=== PATIENT | female | born 1960 | race Caucasian/White ===

== ENCOUNTER 2017-10-13 14:24 | Emergency (ER) | payer OTHER ==
[~2017-10-13] VITALS: Ht 172.7 cm; Wt 72.3 kg
[~2017-10-13 14:24] MED LIST: ATORVASTATIN CA40 MG PO; BAYER CHEWABLE81 MG PO; CELEBREX 200 M200 M1; CIPROFLOXACIN500 M1 PO; CLONAZEPAM 0.50.5 M1 PO; DESYREL50 MG; ESTRADIOL 1 MG T1 M1; FLEXERIL PO; HYDROCODONE-APA10 ML; HYDROXYZINE HCL25 M1 PO; IBUPROFEN 800800 M1 PO; LEXAPRO 10 MG T10 MG; NORCO 5-325 TA1 EACH PO; ONDANSETRON HCL4 M2 PO; PAIN & FEVER325 MG; PERCOCET 5-3251 EACH PO; PRILOSEC 20 MG20 MG; PROMETHAZINE-C120 ML PO; PROTONIX40 M1 PO; TRAZODONE HCL50 MG PO; TRIAMCINOLONE A80 G2 TOP; UNICOMPLEX M TA1 TA1 PO; VITAMIN B-12500 MCG PO; VYTORIN 10-401 EACH; WELLBUTRIN SR150 MG PO; XANAX 0.5 MG0.5 M1 PO
[2017-10-13] MEDS ORDERED: MIDODRINE HCL 55 M1 PO (14:39)
[2017-10-13] MEDS ORDERED: PRILOSEC 20 MG20 MG PO (14:39)
[2017-10-13 15:26] LABS: ABSOLUTE LYMPHOCYTES 2.7 thou/uL (0.8-5.3); ABSOLUTE MONOCYTES 0.8 thou/uL (0.0-1.2); ABSOLUTE NEUTROPHILS 6.7 thou/uL (1.6-8.1); BASOPHILS 0.2 %; HEMATOCRIT 43.6 % (37.0-47.0); HEMOGLOBIN 14.6 gm/dL (12.0-15.0); LYMPHOCYTES 26.2 %; MCH 29.4 pg (26.0-34.0); MCHC 33.6 g/dL (28.0-37.0); MCV 87.6 fL (80.0-100.0); MPV 7.9 fl. (7.2-11.1); NUCLEATED RBCS 0 /100WBC; PLATELET COUNT* 360 thou/uL (150-400); POLYS 65.6 %; RBC 4.98 mil/uL (4.20-5.00); RDW-CV 13.4 % (10.5-14.5); WBC 10.2 thou/uL (4.0-11.0)
[2017-10-13 15:28] LABS: URINE BLOOD NEGATIVE (Negative); URINE CLARITY CLOUDY; URINE COLOR YELLOW; URINE GLUCOSE-RANDOM TRACE (Negative); URINE KETONES TRACE (Negative); URINE LEUKOCYTES-REFLEX 1+ (Negative); URINE PROTEIN 2+ (Negative); URINE SPECIFIC GRAVITY 1.025 (1.005-1.030)
[2017-10-13 15:31] LABS: ICTOTEST (BILI CONFIRMATORY) Negative (Negative); URINE BILIRUBIN 1+ (Negative); URINE NITRITE-REFLEX POSITIVE (Negative)
[2017-10-13 15:34] LABS: ANION GAP 9 mmol/L (7-16); BUN 15 mg/dL (7-18); CALCIUM 9.2 mg/dL (8.5-10.1); CHLORIDE 104 mmol/L (98-107); CO2 26 mmol/L (21-32); GLUCOSE 126 mg/dL (70-99); POTASSIUM 3.7 mmol/L (3.5-5.1); SODIUM 139 mmol/L (136-145)
[2017-10-13 15:37] LABS: BACTERIA-REFLEX >30 Many /HPF (None Seen); CASTS None Seen /LPF (None Seen); CRYSTALS None Seen /LPF (None Seen); SQUAMOUS NONE SEEN /LPF (0-3); URINE RBC 3-10 Few /HPF (0-2); URINE WBC-REFLEX >25 Many /HPF (0-5)
[2017-10-13 15:41] LABS: ALBUMIN 3.7 g/dL (3.4-5.0); ALKALINE PHOSPHATASE 91 U/L (46-116); SGOT 17 U/L (15-37); SGPT 25 U/L (30-65); TOTAL BILIRUBIN 0.5 mg/dL (<0.1-1.0); TOTAL PROTEIN 7.4 g/dL (6.4-8.2); TROPONIN-I LEVEL <0.06 ng/mL (<0.06)
[2017-10-13] MEDS ORDERED: CLOTRIMAZOLE 1%15 G1 TOP (15:55)
[2017-10-13] MEDS ORDERED: BACTRIM DS TAB1 EACH PO (15:55)
[2017-10-13 16:09] VITALS: BP 138/76
--- NOTE | 2017-10-14 10:31 | EKG ---
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1960 Requested By: Monica Eckert Order Number: [id number] MD: Derek Wild Measurements Intervals [place] Rate: 66 P: 6 ID: 126 QRS: -39 QRSD: 106 T: 25 QT: 405 QTc: 425 Interpretive Statements Sinus rhythm Left axis deviation Baseline wander in lead(s) V6 Compared to ECG 12/02/2015 19:44:48 Left-axis deviation now present T-wave abnormality no longer present Electronically Signed On 10-14-2017 10:31:43 CDT by Derek Wild [email or web address] <ELECTRONICALLY SIGNED> By: Zaki Wild MD, [facility] 10/14/17 1031 1539 1539 Zaki Wild MD, [facility] /EPI
== END 2017-10-13 16:10 | disposition home or self-care (01) ==
LOC: M.ERS 14:24
PROVIDERS: Nurse Practitioner Family
DX: N39.0 Urinary tract infection, site not specified (principal); L30.9 Dermatitis, unspecified; E78.00 Pure hypercholesterolemia, unspecified; F41.9 Anxiety disorder, unspecified; K21.9 Gastro-esophageal reflux disease without esophagitis; E11.9 Type 2 diabetes mellitus without complications; Z87.442 Personal history of urinary calculi; Z91.040 Latex allergy status; Z88.5 Allergy status to narcotic agent; Z88.8 Allergy status to other drugs, medicaments and biological substances; Z90.710 Acquired absence of both cervix and uterus; Z90.49 Acquired absence of other specified parts of digestive tract

== ENCOUNTER 2017-10-15 18:05 | Emergency (ER) | payer OTHER ==
[~2017-10-15] VITALS: Ht 172.7 cm; Wt 72.1 kg
[~2017-10-15 18:05] MED LIST changes: +BACTRIM DS TAB1 EACH PO; +CLOTRIMAZOLE 1%15 G1 TOP; +MIDODRINE HCL 55 M1 PO; +PRILOSEC 20 MG20 MG PO
[2017-10-15 18:18] LABS: URINE BILIRUBIN NEGATIVE (Negative); URINE BLOOD NEGATIVE (Negative); URINE CLARITY CLEAR; URINE COLOR YELLOW; URINE GLUCOSE-RANDOM NEGATIVE (Negative); URINE KETONES NEGATIVE (Negative); URINE LEUKOCYTES-REFLEX NEGATIVE (Negative); URINE NITRITE-REFLEX NEGATIVE (Negative); URINE PROTEIN NEGATIVE (Negative); URINE UROBILINOGEN 0.2 E.U./dl (0.2-1.0)
[2017-10-15 18:39] LABS: ABSOLUTE EOSINOPHILS 0.1 thou/uL (0.0-0.7); ABSOLUTE LYMPHOCYTES 3.7 thou/uL (0.8-5.3); ABSOLUTE MONOCYTES 0.6 thou/uL (0.0-1.2); ABSOLUTE NEUTROPHILS 6.5 thou/uL (1.6-8.1); BASOPHILS 0.3 %; EOSINOPHILS 0.6 %; HEMOGLOBIN 14.1 gm/dL (12.0-15.0); LYMPHOCYTES 33.9 %; MCH 29.4 pg (26.0-34.0); MCHC 33.5 g/dL (28.0-37.0); MCV 87.7 fL (80.0-100.0); MONOCYTES 5.6 %; MPV 7.8 fl. (7.2-11.1); NUCLEATED RBCS 0 /100WBC; PLATELET COUNT* 346 thou/uL (150-400); POLYS 59.6 %; RBC 4.79 mil/uL (4.20-5.00); RDW-CV 13.5 % (10.5-14.5); WBC 10.9 thou/uL (4.0-11.0)
[2017-10-15 18:50] LABS: CALCIUM 8.5 mg/dL (8.5-10.1); CREATININE 1.1 mg/dL (0.6-1.3); POTASSIUM 4.1 mmol/L (3.5-5.1)
[2017-10-15 18:54] LABS: ALBUMIN 3.5 g/dL (3.4-5.0); TOTAL BILIRUBIN 0.3 mg/dL (<0.1-1.0); TOTAL PROTEIN 6.9 g/dL (6.4-8.2)
[2017-10-15 19:48] VITALS: BP 142/79
== END 2017-10-15 19:49 | disposition home or self-care (01) ==
LOC: M.ERS 18:05
PROVIDERS: Nurse Practitioner Family
DX: N23 Unspecified renal colic (principal); R11.2 Nausea with vomiting, unspecified; E78.00 Pure hypercholesterolemia, unspecified; F41.9 Anxiety disorder, unspecified; K21.9 Gastro-esophageal reflux disease without esophagitis; E11.9 Type 2 diabetes mellitus without complications; Z91.040 Latex allergy status; Z88.6 Allergy status to analgesic agent; Z88.8 Allergy status to other drugs, medicaments and biological substances; Z90.710 Acquired absence of both cervix and uterus; Z90.49 Acquired absence of other specified parts of digestive tract

== ENCOUNTER 2020-03-11 20:40 | Observation (INO) | payer OTHER ==
[~2020-03-11] VITALS: Ht 170.2 cm; Wt 85.3 kg
--- NOTE | ~2020-03-11 | EMS ---
[facility] [place] [address] EMS Patient Care Report Name: ARY VERDIN Room: [address] Modesto Castaneda#: [id number] Admission: 03/11/20 Attend Phys: Nata Kumar Discharge: 03/12/20 Date of : 56 Report #: [id number] THIS REPORT FOR: //name// Report Transmitted: 03/15/2020 10:21 EMS Care Summary GONZALO HOOD Incident [id number] @ 03/11/2020 20:01 Incident Location [address] [place] [address] Patient ARY VERDIN Female, 60 Years 1960 Patient Address [address] [place] [address] Patient History Personal history of pulmonary embolism,Hypotension, Patient Allergies , Patient Medications Aspirin, Trazodone, Clonazepam, Lipitor, Chief Complaint Chest Pain Disposition Transported No Lights/[place] Dispatch Reason Chest Pain (Non-Traumatic) Transported To [facility] Narrative RESPONDED TO 911 CALL FOR CHEST PAIN. ARRIVED ON SCENE WITH IFD. MET WITH IFD AND 60 YEAR OLD FEMALE PATIENT ARY VERDIN WHO WAS SITTING UPRIGHT IN HER ARMCHAIR PINK AND DRY WITH A NON REBREATHER MASK AT 15L/MIN O2. IFD REPORTED ARY HAD BEEN HAVING CHEST PAIN SINCE , HAD COMPLAINED OF [place] [address] EMS Patient Care Report Name: ARY VERDIN Room: [address] Leonel#: [id number] Admission: 03/11/20 Attend Phys: Nata Kumar Discharge: 03/12/20 Date of : 56 Report #: [id number] SHORTNESS OF AIR WHEN SHE LAID DOWN. IFD REPORTED HISTORY OF PULMONARY EMBOLISM. ARY WAS A&OX4, GCS 15, PINK AND DRY, RR 20, CLEAR BILATERAL LUNG SOUNDS. GATHERED 12 LEAD. GATHERED OPQRST/SAMPLE, DEMOGRAPHICS. ARY RE[facility] SAT ARY ON COT, SECURED TO COT, DISCONTINUED O2. WHEELED ARY TO AMBULANCE. IN AMBULANCE GATHERED VITAL SIGNS, GAINED IV ACCESS 18 GAUGE IN LEFT AC, BLOOD GLUCOSE. DANIE ORDERED NON EMERGENT TRANSPORT TO [facility]. GATHERED FURTHER OPQRST/SAMPLE. BYRON STATED THE PAIN HAD GOTTEN WORSE TODAY, COULDN'T BE MORE SPECIFIC. ARY PREFERRED TO DISCUSS PERSONAL LIFE OVER DISCUSSING MEDICAL HISTORY. CALLED RADIO REPORT TO [facility]. MONITORED ARY FOR DURATION OF TRANSPORT. ARRIVED. WHEELED ARY TO RN STATION, DIRECTED TO ROOM 11. WHEELED ARY TO 11, ASSISTED ARY TO HOSPITAL BED. GAVE REPORT, TRANSFERRED CARE. Initial Vitals @20:15Pain: 08/19, @20:29Pain: 6/10, @20:16 @CHEMICAL INSTRUMENTATION OFFICER: 20:15P: 90,R: 20,BP: 190/130, @20:28P: 70,R: 20,BP: 170/90, @CHEMICAL INSTRUMENTATION OFFICER: 20:15GCS: 15, @20:28GCS: 15, @20:15 @20:29Glucose: 123, Assessments @20:15MENTAL:SKIN:HEENT:LUNG SOUNDS:ABDOMEN:PELVIS//GI:EXTREMITIES:PULSE:NEURO: Impression Chest Pain, Other (Non-Cardiac) Procedures @20:29 cc () Site: Antecubital-LeftResponse: UnchangedSucceeded@20:1612-Lead ECGResponse: UnchangedSucceeded Timeline 20:01,Call Received 20:01,Dispatch Notified 20:01,Psap Call 20:01,Dispatched 20:01,En Route 20:14,On Scene 20:15,At Patient 20:15,BP: / M,PULSE: ,RR: R,SPO2: Ox,ETCO2: ,BG: ,PAIN: 6,GCS: , 20:15,BP: 190/130 M,PULSE: 90,RR: 20 R,SPO2: Ox,ETCO2: ,BG: ,PAIN: ,GCS: , [facility] [address] [place] [address] EMS Patient Care Report Name: ARY VERDIN Room: [address] M.R.#: [id number] Admission: 03/11/20 Attend Phys: Nata Kumar Discharge: 03/12/20 Date of : 56 Report #: [id number] 20:15,BP: / M,PULSE: ,RR: R,SPO2: Ox,ETCO2: ,BG: ,PAIN: ,GCS: 15, 20:15,BP: / M,PULSE: ,RR: R,SPO2: Ox,ETCO2: ,BG: ,PAIN: ,GCS: , 20:16,12-Lead ECG,Response: UnchangedSucceeded, 20:16,BP: / M,PULSE: ,RR: R,SPO2: Ox,ETCO2: ,BG: ,PAIN: ,GCS: , 20:28,BP: 170/90 M,PULSE: 70,RR: 20 R,SPO2: Ox,ETCO2: ,BG: ,PAIN: ,GCS: , 20:28,BP: / M,PULSE: ,RR: R,SPO2: Ox,ETCO2: ,BG: ,PAIN: ,GCS: 15, 20:29,Depart Scene 20:29, cc Site: Antecubital-Left,Response: UnchangedSucceeded, 20:29,BP: / M,PULSE: ,RR: R,SPO2: Ox,ETCO2: ,BG: ,PAIN: 6,GCS: , 20:29,BP: / M,PULSE: ,RR: R,SPO2: Ox,ETCO2: ,B,PAIN: ,GCS: , 20:37,At Destination 20:53,Call Closed Disclaimer v1.1 Copyright 2020 [employer] This EMS Care Summary contains data elements from the applicable legal record (which may be displayed differently). It is designed to provide pertinent information for the following purposes: continuity of care, clinical quality, and state data reporting. The complete legal record is available to ED staff and administrators of the receiving hospital in [employer] Patient Tracker. All data is provided "as is."
[2020-03-11 20:41] VITALS: BP 145/67
[2020-03-11] MEDS ORDERED: PROTONIX40 M2 PO (20:49)
[2020-03-11] MEDS ORDERED: PYRIDOSTIGMINE60 M1 PO (20:50)
[2020-03-11] MEDS ORDERED: YUVAFEM10 MCG VAG (20:50)
[2020-03-11] MEDS ORDERED: PEPCID20 MG PO (20:50)
[2020-03-11] MEDS ORDERED: MAGIC MOUTHWASH SWISH&SPIT (20:51)
[2020-03-11] MEDS ORDERED: FLONASE 0.05%50 MCG NASAL (20:51)
[2020-03-11] MEDS ORDERED: XANAX 0.5 MG0.5 MG PO (20:51)
[2020-03-11 21:09] LABS: ABSOLUTE BASOPHILS 0.1 thou/uL (0.0-0.2); ABSOLUTE EOSINOPHILS 0.5 thou/uL (0.0-0.7); ABSOLUTE LYMPHOCYTES 4.9 thou/uL (0.8-5.3); ABSOLUTE MONOCYTES 0.7 thou/uL (0.0-1.2); ABSOLUTE NEUTROPHILS 3.6 thou/uL (1.6-8.1); BASOPHILS 1.1 %; HEMATOCRIT 41.1 % (37.0-47.0); HEMOGLOBIN 13.8 gm/dL (12.0-15.0); LYMPHOCYTES 50.1 %; MCH 29.4 pg (26.0-34.0); MCHC 33.7 g/dL (28.0-37.0); MCV 87.3 fL (80.0-100.0); MONOCYTES 6.8 %; MPV 7.8 fl. (7.2-11.1); NUCLEATED RBCS 0 /100WBC; PLATELET COUNT* 309 thou/uL (150-400); RBC 4.71 mil/uL (4.20-5.00); RDW-CV 14.1 % (10.5-14.5); WBC 9.8 thou/uL (4.0-11.0)
[2020-03-11 21:19] LABS: CALCIUM 9.1 mg/dL (8.5-10.1); CREATININE 0.9 mg/dL (0.6-1.3); POTASSIUM 3.8 mmol/L (3.5-5.1)
[2020-03-11 21:21] LABS: PROTIME 9.7 Seconds (9.20-11.50)
[2020-03-11 21:24] LABS: URINE BILIRUBIN NEGATIVE (Negative); URINE BLOOD NEGATIVE (Negative); URINE CLARITY CLEAR; URINE COLOR YELLOW; URINE GLUCOSE-RANDOM NEGATIVE (Negative); URINE KETONES NEGATIVE (Negative); URINE LEUKOCYTES-REFLEX NEGATIVE (Negative); URINE NITRITE-REFLEX NEGATIVE (Negative); URINE PROTEIN NEGATIVE (Negative); URINE SPECIFIC GRAVITY <= 1.005 (1.005-1.030); URINE UROBILINOGEN 0.2 E.U./dl (0.2-1.0)
[2020-03-11 21:26] LABS: INR < 0.9
[2020-03-11 21:29] LABS: ALBUMIN 3.4 g/dL (3.4-5.0); MAGNESIUM 2.2 mg/dL (1.8-2.4); TOTAL BILIRUBIN 0.2 mg/dL (<0.1-1.0); TOTAL PROTEIN 6.8 g/dL (6.4-8.2)
[2020-03-11 21:38] LABS: AMP/METHAMP Negative (Negative); BARBITURATES Negative (Negative); BENZODIAZEPINES Negative (Negative); COCAINE Negative (Negative); METHADONE Negative (Negative); OPIATES Negative (Negative); PCP Negative (Negative); THC Negative (Negative)
[2020-03-12 00:30] VITALS: BP 118/60
[2020-03-12 01:05] VITALS: BP 141/71
[2020-03-12 04:15] VITALS: BP 102/52
[2020-03-12 08:00] VITALS: BP 128/68
[2020-03-12 12:48] VITALS: BP 139/72
[2020-03-12 13:12] LABS: ABSOLUTE BASOPHILS 0.1 thou/uL (0.0-0.2); ABSOLUTE EOSINOPHILS 0.3 thou/uL (0.0-0.7); ABSOLUTE LYMPHOCYTES 2.7 thou/uL (0.8-5.3); ABSOLUTE MONOCYTES 0.5 thou/uL (0.0-1.2); BASOPHILS 0.9 %; EOSINOPHILS 5.2 %; HEMATOCRIT 39.9 % (37.0-47.0); HEMOGLOBIN 13.4 gm/dL (12.0-15.0); LYMPHOCYTES 41.8 %; MCH 29.3 pg (26.0-34.0); MCHC 33.5 g/dL (28.0-37.0); MCV 87.4 fL (80.0-100.0); MONOCYTES 7.2 %; MPV 8.1 fl. (7.2-11.1); NUCLEATED RBCS 0 /100WBC; PLATELET COUNT* 300 thou/uL (150-400); POLYS 44.9 %; RBC 4.56 mil/uL (4.20-5.00); RDW-CV 14.1 % (10.5-14.5); WBC 6.6 thou/uL (4.0-11.0)
[2020-03-12 13:25] LABS: ANION GAP 6 mmol/L (7-16); BUN 11 mg/dL (7-18); CALCIUM 8.7 mg/dL (8.5-10.1); CHLORIDE 108 mmol/L (98-107); CO2 28 mmol/L (21-32); CREATININE 0.8 mg/dL (0.6-1.3); GLUCOSE 94 mg/dL (70-99); POTASSIUM 4.1 mmol/L (3.5-5.1); SODIUM 142 mmol/L (136-145)
[2020-03-12 13:50] VITALS: BP 139/72
[2020-03-12 13:57] LABS: TROPONIN-I LEVEL <0.06 ng/mL (<0.06)
[2020-03-12] MEDS ORDERED: NADOLOL 20 MG T20 M1 PO (15:06)
--- NOTE | 2020-03-13 09:36 | EKG ---
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
--- NOTE | 2020-03-15 08:42 | CON ---
[address] [address] CONSULTATION Name: ARY VERDIN Room: [address] Modesto Castaneda#: [id number] Admission: 03/11/20 Attend Phys: Nata Kumar Discharge: 03/12/20 Date of : 56 Report #: [id number] THIS REPORT FOR: cc: Megan Alvarez Tara DO ~ Liston, Michael J. MD [facility] CARDIOLOGY CONSULT INDICATION FOR CONSULTATION: Chest pain and near syncope. HISTORY OF PRESENT ILLNESS: The patient is a 60-year-old white female who was admitted to the hospital yesterday with complaints of chest discomfort, heaviness, dizziness, nausea and generalized ill feeling. She had low-grade fever, but denied any high-grade fevers. She had nausea without vomiting. She reports a history of fundoplication remotely and therefore only has dry heaves. She reports some combination of constipation and diarrhea as well. Her discomfort is generalized more than focal and does not radiate. Her primary other significant issue appears to be frequent episodes of dizziness and near syncope as well as syncopal episodes. She has apparent autonomic dysfunction with positional orthostatic tachycardia and possible orthostatic hypotension, although her blood pressure appears stable at this time. She is without other cardiac complaint. Her EKG shows sinus rhythm with no acute ST or T-wave abnormalities. Cardiac enzymes are negative x 3 sets. By history, she had a cardiac catheterization at [facility] in 2018 that showed normal coronary arteries. She currently takes a regimen of pyridostigmine and midodrine for her orthostasis with some marginal help with this. PAST MEDICAL AND SURGICAL HISTORY: 1. Chronic issues with autonomic dysfunction as outlined above. 2. History of Yomaira fundoplication. 3. Hyperlipidemia. 4. Intermittent hypertension. 5. Type 2 diabetes mellitus. 6. History of pulmonary emboli in 2014, treated with anticoagulation. 7. TIA. 8. Positional orthostatic tachycardia syndrome. 9. Hiatal hernia. 10. Hysterectomy. 11. Cholecystectomy. 12. Appendectomy. 13. Tonsillectomy and adenoidectomy. 14. Basal cell carcinoma [place] [address] CONSULTATION Name: ARY VERDIN Judi Room: [address] Modesto Castaneda#: [id number] Admission: 03/11/20 Attend Phys: Nata Kumar Discharge: 03/12/20 Date of : 56 Report #: [id number] 15. Anxiety. 16. Ovarian cyst removed. 17. Right breast cyst removed. 18. Nephrolithiasis. FAMILY HISTORY: Noncontributory. SOCIAL HISTORY: The patient is a lifelong nonsmoker. She drinks alcohol only on special occasions. ALLERGIES: TALWIN, SULFA, MORPHINE, ADHESIVE AND LATEX. HOME MEDICATIONS: Alprazolam 0.5 mg q.8 hours p.r.n., aspirin 81 mg p.o. daily, atorvastatin 40 mg p.o. daily, clonazepam 0.5 mg t.i.d., vitamin B12 500 mcg p.o. daily, estradiol 10 mcg topically 3 times weekly, Pepcid 20 mg p.o. b.i.d., Flonase nasal spray b.i.d., midodrine 5 mg t.i.d., multivitamin 1 tablet daily, Zofran 4 mg p.r.n., Protonix 40 mg daily, pyridostigmine 60 mg b.i.d., trazodone 50 mg 2 tablets at bedtime. PHYSICAL EXAMINATION: VITAL SIGNS: Stable. Blood pressure 139/72, pulse 74 and regular. GENERAL: This is a pleasant lady who is in no distress. Mood and affect appropriate. HEENT: Extraocular muscles intact. Mucous membranes are moist. NECK: Shows no jugular venous distention. There are no carotid bruits. CHEST: Reveals clear lung connors without wheezes or rales. CARDIOVASCULAR: Reveals a regular rhythm with normal S1 and S2. I do not appreciate gallop or murmur. ABDOMEN: Reveals a soft abdomen with positive bowel sounds. EXTREMITIES: Shows no significant edema. SKIN: Dry. DIAGNOSTIC DATA: A 12-lead EKG shows sinus rhythm with no acute ST or T-wave abnormalities. Labs are reviewed. Troponins are negative x 3 sets. IMPRESSION AND RECOMMENDATIONS: 1. Atypical chest discomfort with generalized pain. This is not cardiac in nature. We would not pursue further cardiac evaluation at this time. 2. Autonomic dysfunction. The patient will continue on a regimen of pyridostigmine and midodrine. I would recommend the addition of nadolol 10 mg twice daily and we will order this through her local pharmacy. 3. Dyslipidemia. Continue current statin agent. [facility] [address] [place] [address] CONSULTATION Name: ARY VERDIN Room: [address] M.R.#: [id number] Admission: 03/11/20 Attend Phys: Nata Kumar Discharge: 03/12/20 Date of : 56 Report #: [id number] 4. Gastroesophageal reflux disease appears relatively stable, although some of her symptoms could be related to that. 5. Reported history of diabetes, although I do not see that she is on any medication for this, apparently, diet controlled. From a cardiac standpoint, okay to discharge the patient to home. Follow up with primary director of software engineering and primary physician. <ELECTRONICALLY SIGNED> By: Loi Barclay MD, FACC 03/15/20 0842 [id number] Barclay MD, FACC /nt
== END 2020-03-12 16:05 | disposition home or self-care (01) ==
LOC: M.ERS 20:40 → M.TBA-ER 23:41 → M.2W 03-12 01:05
PROVIDERS: Emergency Medicine; ADMIT Internal Medicine; ATTEND Internal Medicine
DX: I49.8 Other specified cardiac arrhythmias (principal); R55 Syncope and collapse; K22.9 Disease of esophagus, unspecified; K44.9 Diaphragmatic hernia without obstruction or gangrene; E78.00 Pure hypercholesterolemia, unspecified; E11.9 Type 2 diabetes mellitus without complications; Z86.711 Personal history of pulmonary embolism; Z86.73 Personal history of transient ischemic attack (TIA), and cerebral infarction without residual deficits; Z79.82 Long term (current) use of aspirin; Z79.899 Other long term (current) drug therapy; Z20.828 Contact with and (suspected) exposure to other viral communicable diseases

== ENCOUNTER → 2020-06-02 | Outpatient (CLI) | payer OTHER ==
[~2020-06-02] MED LIST changes: +FLONASE 0.05%50 MCG NASAL; +MAGIC MOUTHWASH SWISH&SPIT; +NADOLOL 20 MG T20 M1 PO; +PEPCID20 MG PO; +PROTONIX40 M2 PO; +PYRIDOSTIGMINE60 M1 PO; +XANAX 0.5 MG0.5 MG PO; +YUVAFEM10 MCG VAG
[2020-06-02 08:53] LABS: ABSOLUTE BASOPHILS 0.1 thou/uL (0.0-0.2); ABSOLUTE EOSINOPHILS 0.3 thou/uL (0.0-0.7); ABSOLUTE LYMPHOCYTES 3.3 thou/uL (0.8-5.3); ABSOLUTE MONOCYTES 0.5 thou/uL (0.0-1.2); ABSOLUTE NEUTROPHILS 1.9 thou/uL (1.6-8.1); BASOPHILS 1.9 %; EOSINOPHILS 5.6 %; HEMATOCRIT 41.3 % (37.0-47.0); HEMOGLOBIN 13.7 gm/dL (12.0-15.0); LYMPHOCYTES 53.3 %; MCH 28.5 pg (26.0-34.0); MCHC 33.1 g/dL (28.0-37.0); MCV 86.1 fL (80.0-100.0); MONOCYTES 8.3 %; MPV 7.9 fl. (7.2-11.1); NUCLEATED RBCS 0 /100WBC; PLATELET COUNT* 290 thou/uL (150-400); POLYS 30.9 %; RDW-CV 13.9 % (10.5-14.5); WBC 6.1 thou/uL (4.0-11.0)
[2020-06-02 09:17] LABS: ALBUMIN 3.6 g/dL (3.4-5.0); CALCIUM 9.5 mg/dL (8.5-10.1); POTASSIUM 4.2 mmol/L (3.5-5.1); TOTAL BILIRUBIN 0.5 mg/dL (<0.1-1.0); TOTAL PROTEIN 7.3 g/dL (6.4-8.2)
== END ==
LOC: M.MRI 08:16
PROVIDERS: ATTEND Internal Medicine Gastroenterology
DX: R74.8 Abnormal levels of other serum enzymes (principal)

== ENCOUNTER 2020-07-19 18:29 | Emergency (ER) | payer OTHER ==
[~2020-07-19] VITALS: Ht 170.2 cm; Wt 84.4 kg
[2020-07-19 19:31] LABS: ABSOLUTE BASOPHILS 0.1 thou/uL (0.0-0.2); ABSOLUTE EOSINOPHILS 0.4 thou/uL (0.0-0.7); ABSOLUTE LYMPHOCYTES 4.2 thou/uL (0.8-5.3); ABSOLUTE MONOCYTES 0.9 thou/uL (0.0-1.2); ABSOLUTE NEUTROPHILS 3.5 thou/uL (1.6-8.1); EOSINOPHILS 4.2 %; HEMATOCRIT 41.1 % (37.0-47.0); HEMOGLOBIN 14.1 gm/dL (12.0-15.0); LYMPHOCYTES 46.5 %; MCH 29.7 pg (26.0-34.0); MCHC 34.3 g/dL (28.0-37.0); MCV 86.5 fL (80.0-100.0); MONOCYTES 9.6 %; MPV 7.9 fl. (7.2-11.1); NUCLEATED RBCS 0 /100WBC; PLATELET COUNT* 298 thou/uL (150-400); POLYS 38.7 %; RBC 4.75 mil/uL (4.20-5.00); RDW-CV 14.4 % (10.5-14.5); WBC 9.1 thou/uL (4.0-11.0)
[2020-07-19 19:42] LABS: INR 0.9; PROTIME 10.1 Seconds (9.20-11.50)
[2020-07-19 19:55] LABS: CALCIUM 9.4 mg/dL (8.5-10.1); CREATININE 0.8 mg/dL (0.6-1.3); POTASSIUM 4.3 mmol/L (3.5-5.1)
[2020-07-19 20:05] LABS: ALBUMIN 3.8 g/dL (3.4-5.0); TOTAL BILIRUBIN 0.6 mg/dL (<0.1-1.0); TOTAL PROTEIN 7.3 g/dL (6.4-8.2)
[2020-07-19 20:24] LABS: URINE BILIRUBIN NEGATIVE (Negative); URINE BLOOD NEGATIVE (Negative); URINE CLARITY CLEAR; URINE COLOR YELLOW; URINE GLUCOSE-RANDOM NEGATIVE (Negative); URINE KETONES NEGATIVE (Negative); URINE LEUKOCYTES-REFLEX NEGATIVE (Negative); URINE NITRITE-REFLEX NEGATIVE (Negative); URINE PROTEIN NEGATIVE (Negative); URINE SPECIFIC GRAVITY <= 1.005 (1.005-1.030); URINE UROBILINOGEN 0.2 E.U./dl (0.2-1.0)
[2020-07-19 22:39] VITALS: BP 129/73
--- NOTE | 2020-07-20 12:50 | EKG ---
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 : 1960 Requested By: Jenna Diaz Order Number: [id number] MD: Huan Wray Measurements Intervals [place] Rate: 56 P: 42 CT: 171 QRS: -35 QRSD: 102 T: -14 QT: 447 QTc: 432 Interpretive Statements Sinus rhythm Left axis deviation Abnormal R-wave progression, late transition Borderline T abnormalities, diffuse leads Baseline wander in lead(s) I,aVR,aVL Compared to ECG 03/11/2020 20:54:30 Left-axis deviation now present T-wave abnormality now present Myocardial infarct finding no longer present Electronically Signed On 07-20-2020 12:49:58 CDT by Huan Wray [email or web address] <ELECTRONICALLY SIGNED> By: Huan Wray MD, [facility] 07/20/20 1249 37 37 Huan Wray MD, [facility] /EPI
== END 2020-07-19 22:39 | disposition home or self-care (01) ==
LOC: M.ERS 18:29
PROVIDERS: Emergency Medicine
DX: I10 Essential (primary) hypertension (principal); E78.00 Pure hypercholesterolemia, unspecified; K21.9 Gastro-esophageal reflux disease without esophagitis; E11.9 Type 2 diabetes mellitus without complications; Z87.442 Personal history of urinary calculi; Z86.73 Personal history of transient ischemic attack (TIA), and cerebral infarction without residual deficits; Z90.721 Acquired absence of ovaries, unilateral; Z86.711 Personal history of pulmonary embolism; Z87.891 Personal history of nicotine dependence; Z91.040 Latex allergy status; Z88.2 Allergy status to sulfonamides; Z88.5 Allergy status to narcotic agent; Z88.8 Allergy status to other drugs, medicaments and biological substances; Z90.710 Acquired absence of both cervix and uterus; Z90.49 Acquired absence of other specified parts of digestive tract

== ENCOUNTER 2020-12-16 16:57 | Emergency (ER) | payer OTHER ==
[~2020-12-16] VITALS: Ht 170.2 cm; Wt 84.8 kg
[2020-12-16] MEDS ORDERED: YUVAFEM10 MCG (17:14)
[2020-12-16 18:42] LABS: ABSOLUTE BASOPHILS 0.1 thou/uL (0.0-0.2); ABSOLUTE EOSINOPHILS 0.5 thou/uL (0.0-0.7); ABSOLUTE LYMPHOCYTES 3.8 thou/uL (0.8-5.3); ABSOLUTE MONOCYTES 0.7 thou/uL (0.0-1.2); ABSOLUTE NEUTROPHILS 3.4 thou/uL (1.6-8.1); BASOPHILS 1.3 %; EOSINOPHILS 6.2 %; HEMATOCRIT 40.9 % (37.0-47.0); HEMOGLOBIN 13.9 gm/dL (12.0-15.0); LYMPHOCYTES 44.8 %; MCH 29.5 pg (26.0-34.0); MCHC 33.9 g/dL (28.0-37.0); MCV 87.2 fL (80.0-100.0); MONOCYTES 7.9 %; MPV 8.2 fl. (7.2-11.1); NUCLEATED RBCS 0 /100WBC; PLATELET COUNT* 309 thou/uL (150-400); POLYS 39.8 %; RDW-CV 13.4 % (10.5-14.5); WBC 8.4 thou/uL (4.0-11.0)
[2020-12-16 18:50] LABS: CALCIUM 8.8 mg/dL (8.5-10.1); POTASSIUM 4.1 mmol/L (3.5-5.1)
[2020-12-16 18:56] LABS: ALBUMIN 3.8 g/dL (3.4-5.0); TOTAL BILIRUBIN 0.5 mg/dL (<0.1-1.0)
[2020-12-16 19:55] LABS: URINE BILIRUBIN NEGATIVE (Negative); URINE BLOOD NEGATIVE (Negative); URINE CLARITY CLEAR; URINE COLOR YELLOW; URINE GLUCOSE-RANDOM NEGATIVE (Negative); URINE KETONES NEGATIVE (Negative); URINE LEUKOCYTES-REFLEX NEGATIVE (Negative); URINE NITRITE-REFLEX NEGATIVE (Negative); URINE PROTEIN NEGATIVE (Negative); URINE SPECIFIC GRAVITY <= 1.005 (1.005-1.030); URINE UROBILINOGEN 0.2 E.U./dl (0.2-1.0)
[2020-12-16] MEDS ORDERED: CITRATE OF MAG296 M1 PO (20:21)
[2020-12-16 21:06] VITALS: BP 168/77
--- NOTE | 2020-12-17 14:34 | EKG ---
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
== END 2020-12-16 21:07 | disposition home or self-care (01) ==
LOC: M.ERS 16:57
PROVIDERS: Emergency Medicine Emergency Medical Services
DX: K59.00 Constipation, unspecified (principal); R10.9 Unspecified abdominal pain; K21.9 Gastro-esophageal reflux disease without esophagitis; E11.9 Type 2 diabetes mellitus without complications; Z20.822 Contact with and (suspected) exposure to COVID-19; Z91.040 Latex allergy status; Z88.5 Allergy status to narcotic agent; Z88.8 Allergy status to other drugs, medicaments and biological substances; Z88.2 Allergy status to sulfonamides; Z79.899 Other long term (current) drug therapy; Z90.710 Acquired absence of both cervix and uterus; Z87.442 Personal history of urinary calculi